=== PATIENT | female | born 1965 ===

== ENCOUNTER 2019-09-12 16:11 | Emergency (ER) | payer MEDICAID ==
[2019-09-12 16:14] VITALS: BP 179/90
[2019-09-12] MEDS ORDERED: IBUPROFEN 200 MG TABLET ONE (16:56)
[2019-09-12] MEDS ORDERED: IBUPROFEN 200 MG TABLET PO ONE (17:00)
== END 2019-09-12 18:20 | disposition left against medical advice (07) ==
LOC: ED 18:19
DX: M13.171 Monoarthritis, not elsewhere classified, right ankle and foot (principal)
CPT/HCPCS: 99283